=== PATIENT | male | born 1935 | race Caucasian/White ===

== ENCOUNTER 2019-05-18 15:56 | Observation (INO) | payer MEDICARE, BC ==
[2019-05-18] VITALS (7 sets, daily range): BP systolic 173–188; BP diastolic 76–84
[~2019-05-18] VITALS: Ht 167.6 cm; Wt 68.0 kg
[2019-05-18] MEDS ORDERED: methylPREDNISolone sod succ 125mg/2ml vial IV ONE (16:00)
[2019-05-18 16:25] LABS: BASOPHILS # (AUTO) 0.1 X10'3 (0-0.2); BASOPHILS % (AUTO) 0.7 % (0-1); EOSINOPHILS # (AUTO) 0.2 X10'3 (0-0.9); EOSINOPHILS % (AUTO) 2.4 % (0-6); HEMATOCRIT 32.6 % (42.0-52.0); HEMOGLOBIN 11.1 g/dl (14.0-17.9); LYMPHOCYTES # (AUTO) 1.5 X10'3 (1.1-4.8); LYMPHOCYTES % (AUTO) 20.4 % (21-51); MEAN CORPUSCULAR HEMOGLOBIN 30.4 PG (27.0-31.0); MEAN CORPUSCULAR VOLUME 89.4 FL (78-98); MEAN PLATELET VOLUME 8.9 FL (7.4-10.4); MONOCYTES # (AUTO) 0.6 X10'3 (0-0.9); MONOCYTES % (AUTO) 8.8 % (2-12); NEUTROPHILS % (AUTO) 67.7 % (42-75); PLATELET COUNT 220 X10'3 (140-440); RED BLOOD COUNT 3.65 X10'6 (4.70-6.10); RED CELL DISTRIBUTION WIDTH 14.5 % (11.5-14.5); WHITE BLOOD COUNT 7.3 X10'3 (4.5-11.0)
--- NOTE | 2019-05-18 16:26 | NUR ---
MEDICATED PT WITH TXA PER ORDERS, PT SIGNED BLOOD CONSENT, BLOOD BANK CALLED AND FFP NOT READY YET, DR WALL INFORMED.
[2019-05-18] MEDS ORDERED: tranexamic acid inj. 700 MG in normal saline 100ml IV soln 100 ML IV ONE (16:30)
--- NOTE | 2019-05-18 16:34 | NUR ---
LAB CALLED, GIVEN AN 30 MINUTE ETA FOR FFP TO BE AVAILABLE.
[2019-05-18 16:37] LABS: ALANINE AMINOTRANSFERASE 21 U/L (12-78); ALBUMIN 3.9 G/DL (3.4-5.0); ALBUMIN/GLOBULIN RATIO 1.1 (1.1-1.5); ALKALINE PHOSPHATASE 123 IU/L (46-116); ANION GAP 11 (8-16); ASPARTATE AMINO TRANSFERASE 18 U/L (10-37); BILIRUBIN,TOTAL 0.4 MG/DL (0.1-1.0); BLOOD UREA NITROGEN 26 MG/DL (7-18); BUN/CREATININE RATIO 9.1 (5.4-32.0); CALCIUM 8.4 MG/DL (8.5-10.1); CHLORIDE 106 MMOL/L (99-107); CREATININE 2.85 MG/DL (0.60-1.10); GLUCOSE 135 MG/DL (70-104); POTASSIUM 3.9 MMOL/L (3.5-5.1); SODIUM 142 MMOL/L (135-145); TOTAL CARBON DIOXIDE 24.7 MMOL/L (24-32); TOTAL PROTEIN 7.6 G/DL (6.4-8.2); eGFR 21 ML/MIN
[2019-05-18] MEDS ORDERED: acetaminophen 325mg tablet PO PRN (17:40)
[2019-05-18] MEDS ORDERED: morphine 2 MG/ML inj. syringe IV PRN ×2 (17:40)
[2019-05-18] MEDS ORDERED: magnesium hydroxide 30ml (MOM) UD suspension PO PRN (17:40)
[2019-05-18] MEDS ORDERED: ondansetron/PF 4mg/2ml inj IV PRN (17:40)
[2019-05-18] MEDS ORDERED: mag hydrox/Alum hydrox/simeth 30ml oral suspension PO PRN (17:40)
--- NOTE | 2019-05-18 18:52 | NUR ---
last unit of FFP is done infusing. urine sent to lab. pt reports 0/10 pain. at bedside. pt appears to be comfortable. no s/s of respiratory distress. swelling in face has gone down according to and pt. tongue appears to be wnl no swelling noted.
--- NOTE | 2019-05-18 20:30 | NUR ---
Patient arrived to floor from ER via gurney after report taken by charge nurse. Pt. A&ox4 and in no current distress. at his side. Patient settled into bed and VS initiated.
[2019-05-19] VITALS: BP 157/76
--- NOTE | 2019-05-19 07:08 | NUR ---
Problems reprioritized. Patient report given, questions answered & plan of care reviewed with Clemencia goel.
--- NOTE | 2019-05-19 07:11 | NUR ---
Patient in room [facility]. I have received report from MARIUSZ Casanova and had the opportunity to ask questions and assume patient care.
[2019-05-19 08:00] VITALS: BP 159/76
[2019-05-19] MEDS ORDERED: ESOM40CA PO (09:51)
[2019-05-19] MEDS ORDERED: AMLO-94 PO (09:51)
[2019-05-19] MEDS ORDERED: LEVO75TA56 PO (09:51)
--- NOTE | 2019-05-19 09:57 | NUR ---
PAGER ID: [phone] MESSAGE: [email or web address] 344Valeria. Mark Ward. jed. med rec is ready for review. thank you. MARIUSZ Gruber [phone]
--- NOTE | 2019-05-19 11:48 | NUR ---
pt. discharged from facility at 1140. pt. walked down to private car accompanied by staff and his . pt. understands to make appointment with his primary care. pt. IV's were taken out with cannulas intact. pt. signed and understood all paperwork. no new medications to call in.
== END 2019-05-19 11:38 | disposition home or self-care (01) ==
LOC: ER 15:57 → ED HOLD 17:41 → SUR 3N 20:30
PROVIDERS: ADMIT Internal Medicine; ATTEND Internal Medicine
DX: T46.4X5A Adverse effect of angiotensin-converting-enzyme inhibitors, initial encounter (principal); T78.3XXA Angioneurotic edema, initial encounter; I10 Essential (primary) hypertension; E03.9 Hypothyroidism, unspecified; Z79.899 Other long term (current) drug therapy
CPT/HCPCS: 36415; 36430; 71045; 80053; 85025; 86885; 86900; 86901; 87081; 93005; 96365; 96375; 99291; G0378; J2930; P9059

== ENCOUNTER 2019-05-27 09:04 | Emergency (ER) | payer MEDICARE, BC ==
[~2019-05-27] VITALS: Ht 167.6 cm; Wt 67.8 kg
[~2019-05-27 09:04] MED LIST: ESOM40CA PO; LEVO75TA56 PO
[2019-05-27 09:48] VITALS: BP 177/72
[2019-05-27] MEDS ORDERED: predniSONE 20 mg tablet PO ONE (11:05)
[2019-05-27] MEDS ORDERED: diphenhydrAMINE 25mg capsule PO ONE (11:05)
[2019-05-27] MEDS ORDERED: PRED50TA PO (11:07)
[2019-05-27] MEDS ORDERED: EPIN0.3P3 IM (11:07)
[2019-05-27] MEDS ORDERED: DIPH25CA83 PO (11:07)
[2019-05-29] MEDS ORDERED: AMLO-94 PO (19:56)
[2019-05-29] MEDS ORDERED: DIPH25TA23 PO (19:56)
== END 2019-05-27 11:26 | disposition home or self-care (01) ==
LOC: ER 09:04
DX: R22.0 Localized swelling, mass and lump, head (principal); T45.0X5A Adverse effect of antiallergic and antiemetic drugs, initial encounter; I10 Essential (primary) hypertension; Z79.899 Other long term (current) drug therapy; Y92.89 Other specified places as the place of occurrence of the external cause
CPT/HCPCS: 99283; J7512; Q0163

== ENCOUNTER 2019-06-21 15:58 | Emergency (ER) | payer MEDICARE, BC ==
[~2019-06-21] VITALS: Ht 175.3 cm; Wt 80.0 kg
[~2019-06-21 15:58] MED LIST changes: +AMLO-94 PO; +DIPH25CA83 PO; +DIPH25TA23 PO; +EPIN0.3P3 IM
[2019-06-21] MEDS ORDERED: TRANEXAMIC ACID IV STA (16:02)
[2019-06-21] MEDS ORDERED: NORMAL SALINE IV STA (16:02)
[2019-06-21] MEDS ORDERED: dexamethasone sod phosphate 10mg/ml inj IV STA (16:02)
[2019-06-21] MEDS ORDERED: famotidine/PF 10 mg/ml inj IV ONE (16:05)
[2019-06-21] MEDS ORDERED: diphenhydrAMINE 50 mg/ml inj IV ONE (16:05)
[2019-06-21] MEDS ORDERED: tranexamic acid inj. 1,000 MG in normal saline 100ml IV soln 100 ML IV STA (16:16)
[2019-06-21] MEDS ORDERED: normal saline 1000ML IV soln IVB ONE (16:20)
[2019-06-21] MEDS: epiNEPHrine 1 mg/ml inj SQ PRN ×2 (16:24→18:01)
[2019-06-21 16:43] LABS: BASOPHILS # (AUTO) 0.1 X10'3 (0-0.2); BASOPHILS % (AUTO) 1.1 % (0-1); EOSINOPHILS # (AUTO) 0.2 X10'3 (0-0.9); HEMATOCRIT 35.1 % (42.0-52.0); HEMOGLOBIN 12.2 g/dl (14.0-17.9); LYMPHOCYTES # (AUTO) 1.4 X10'3 (1.1-4.8); LYMPHOCYTES % (AUTO) 17.8 % (21-51); MEAN CORPUSCULAR HGB CONC 34.7 g/dL (33.0-36.5); MEAN CORPUSCULAR VOLUME 86.5 FL (78-98); MEAN PLATELET VOLUME 8.5 FL (7.4-10.4); MONOCYTES # (AUTO) 0.6 X10'3 (0-0.9); NEUTROPHILS # (AUTO) 5.7 X10'3 (1.8-7.7); NEUTROPHILS % (AUTO) 71.1 % (42-75); PLATELET COUNT 261 X10'3 (140-440); RED BLOOD COUNT 4.06 X10'6 (4.70-6.10)
[2019-06-21 17:04] LABS: ALANINE AMINOTRANSFERASE 21 U/L (12-78); ALBUMIN 4.1 G/DL (3.4-5.0); ALKALINE PHOSPHATASE 135 IU/L (46-116); ANION GAP 12 (8-16); ASPARTATE AMINO TRANSFERASE 20 U/L (10-37); BILIRUBIN,TOTAL 0.5 MG/DL (0.1-1.0); BLOOD UREA NITROGEN 25 MG/DL (7-18); BUN/CREATININE RATIO 9.5 (5.4-32.0); CHLORIDE 103 MMOL/L (99-107); CREATININE 2.64 MG/DL (0.60-1.10); GLUCOSE 114 MG/DL (70-104); POTASSIUM 3.6 MMOL/L (3.5-5.1); SODIUM 140 MMOL/L (135-145); TOTAL CARBON DIOXIDE 25.4 MMOL/L (24-32); TOTAL PROTEIN 8.1 G/DL (6.4-8.2); eGFR 23 ML/MIN
[2019-06-21 18:45] VITALS: BP 173/100
--- NOTE | 2019-06-21 18:54 | NUR ---
FFP STARTED. BP 173/100, DENIES ANY PAIN , REPORTS TOUNGE STILL SWLLEN. A&OX4, NO AIRWAY COMPROMISE. AT BEDSIDE.
[2019-06-21 19:00] VITALS: BP 154/77
[2019-06-21 19:53] VITALS: BP 137/84
--- NOTE | 2019-06-21 20:15 | NUR ---
Patient reports improvement of symptoms after FFP and requests to go home. Airway is clear and patient is able to swallow without difficulty. Dr. Curiel notified and he states he will see the patient shrotly.
[2019-06-21] MEDS ORDERED: EPIN0.3P3 IM (20:23)
[2019-06-21] MEDS ORDERED: PRED20TA PO (20:23)
[2019-06-21 20:48] VITALS: BP 131/89
== END 2019-06-21 20:49 | disposition home or self-care (01) ==
LOC: ER 15:58
DX: T78.3XXA Angioneurotic edema, initial encounter (principal); T78.40XA Allergy, unspecified, initial encounter; I10 Essential (primary) hypertension; K21.9 Gastro-esophageal reflux disease without esophagitis; E03.9 Hypothyroidism, unspecified; Z91.02 Food additives allergy status; Z79.899 Other long term (current) drug therapy; X58.XXXA Exposure to other specified factors, initial encounter
CPT/HCPCS: 36415; 36430; 80053; 83520; 85025; 86885; 86900; 86901; 96365; 96366; 96372; 96375; 99291; J0171; J1100; J1200; J3490; J7030; P9059

== ENCOUNTER 2020-09-03 01:11 | Emergency (ER) | payer MEDICARE, BC ==
[~2020-09-03] VITALS: Ht 172.7 cm; Wt 70.0 kg
[2020-09-03] MEDS ORDERED: methylPREDNISolone sod succ 125mg/2ml vial IV ONE ×2 (01:15→14:00)
[2020-09-03] MEDS ORDERED: epiNEPHrine 1 mg/ml inj SQ ONE (01:15)
[2020-09-03] MEDS ORDERED: famotidine/PF 10 mg/ml inj IV ONE (01:15)
[2020-09-03] MEDS ORDERED: diphenhydrAMINE 50 mg/ml inj IV ONE (01:15)
[2020-09-03] MEDS ORDERED: tranexamic acid 100mg/ml inj. IV ONE (01:20)
[2020-09-03] MEDS ORDERED: TRANEXAMIC ACID 1 GM IN NACL,ISO-OS 100 ML IV ONE (01:30)
--- NOTE | 2020-09-03 02:15 | NUR ---
VO no EKG per Veena FRANCOIS.
--- NOTE | 2020-09-03 03:38 | NUR ---
Patient now reports he feels "a little bit better". Awaiting FFP from lab.
--- NOTE | 2020-09-03 04:05 | NUR ---
Per [facility], use downtime form as unit will not scan. Cosigned with Dr. Curiel.
[2020-09-03] MEDS ORDERED: ATEN-169 PO (05:41)
[2020-09-03] MEDS ORDERED: CHOL500049 PO (05:42)
[2020-09-03] MEDS ORDERED: OMEG-15 PO (05:42)
[2020-09-03] MEDS ORDERED: EPIN0.3P3 IM (05:43)
[2020-09-03] MEDS ORDERED: DIPH25CA83 PO (05:44)
--- NOTE | 2020-09-03 06:32 | NUR ---
Pt was up and ambulated to bathroom with steady gait. Pt back in [facility], pt positioned for comfort and call light on rail within pt reach.
--- NOTE | 2020-09-03 06:45 | NUR ---
Pt with slight swelling of tongue. Pt reports swelling is almost completely gone and states he will notify staff promptly if swelling starts to reoccure. Pt remains without SOB and sats well on RA
[2020-09-03] MEDS ORDERED: famotidine/PF 10 mg/ml inj IV SCH (08:00)
[2020-09-03] MEDS ORDERED: magnesium hydroxide 30ml (MOM) UD suspension PO PRN (08:05)
[2020-09-03] MEDS ORDERED: acetaminophen 325mg tablet PO PRN ×2 (08:05)
[2020-09-03] MEDS ORDERED: ringers solution, lacted 1,000 ML IV SCH (08:05)
[2020-09-03] MEDS ORDERED: ondansetron/PF 4mg/2ml inj IV PRN (08:05)
[2020-09-03] MEDS ORDERED: morphine 4 MG/ML inj SYRINge IV PRN (08:05)
[2020-09-03] MEDS ORDERED: potassium Cl 20 mEq SR tablet PO PRN ×2 (08:05)
[2020-09-03] MEDS ORDERED: morphine 2 MG/ML inj. syringe IV PRN (08:05)
[2020-09-03] MEDS ORDERED: AMLO10TA PO (09:50)
[2020-09-03] MEDS ORDERED: K, MAG and/or Phos replacement - Verify level? MC SCH (13:00)
[2020-09-03 13:08] VITALS: BP 159/90
== END 2020-09-03 13:11 | disposition home or self-care (01) ==
LOC: ER 01:12 → UNDOADMIN 08:04 → ED HOLD 08:04 → UNDODISIN 13:11
DX: T78.3XXA Angioneurotic edema, initial encounter (principal); R06.02 Shortness of breath; I10 Essential (primary) hypertension; K21.9 Gastro-esophageal reflux disease without esophagitis; E03.9 Hypothyroidism, unspecified; Z79.899 Other long term (current) drug therapy
CPT/HCPCS: 36415; 36430; 86885; 86900; 86901; 87081; 96365; 96367; 96372; 96375; 99291; J0171; J1200; J2930; J3490; P9059; 96374; G0378; J7120